=== PATIENT | male | born 1955 | race Caucasian/White ===

== ENCOUNTER 2018-08-14 22:52 | Emergency (ER) | payer OTHER ==
[~2018-08-14] VITALS: Ht 167.6 cm; Wt 130.3 kg
[2018-08-14 23:10] VITALS: Ht 167.6 cm; Wt 130.3 kg
--- NOTE | 2018-08-15 02:52 | ERD ---
ER Documentation Chief Complaint Chief Complaint cough/runny nose x 1 week. also c/o bruising abd area HPI 63-year-old male presents here in emergency department for complaints of right upper quadrant abdominal pain, bruising in the upper abdominal area, unknown how long it has been on, is yellowish discoloration of the upper abdomen, complains of right upper quadrant abdominal pain that is worse with coughing, has been having cough runny nose congestion for 1 week, was seen by the urgent care clinic and was given cough medications, continues to have the cough and now is having pain on the right rib right upper quadrant area with the coughing, patient did not notice the bruising before but nausea which discoloration in epigastric area pain. Complains of pain sharp pain, 6/10, worse upon coughing. ROS All systems reviewed and are negative except as per history of present illness. Medications Home Meds Reported Medications [none] Unknown Strength No Conflict Check 08/15/18 Allergies Allergies: Coded Allergies: No Known Drug Allergies (Verified Allergy, Unknown, 08/14/18) PMhx/Soc Medical and Surgical Hx: pt denies Medical Hx, pt denies Surgical Hx FmHx Family History: No diabetes, No coronary disease, No other Physical Exam Vitals Vital Signs Date Temp Pulse Resp B/P (MAP) Pulse Ox O2 O2 Flow FiO2 Time Delivery Rate 08/14/18 97.6 90 18 164/87 96 23:10 (112) Physical Exam GENERAL: The patient is well developed and appropriate for usual state of health, in no apparent distress. CHEST: Clear to auscultation bilaterally. There are no rales, wheezes or rhonchi. HEART: Regular rate and rhythm. No murmurs, clicks, rubs or gallops. No S3 or S4. ABDOMEN: Soft, nontender and nondistended. Good bowel sounds. No rebound or guarding. No gross peritonitis. No gross organomegaly or masses. No Howard sign or McBurney point tenderness. BACK: No midline or flank tenderness. EXTREMITIES: Equal pulses bilaterally. There is no peripheral clubbing, cyanosis or edema. No focal swelling or erythema. Full range of motion. Grossly neurovascularly intact. NEURO: Alert and oriented. Cranial nerves 2-12 intact. Motor strength in all 4 extremities with 5/5 strength. Sensation grossly intact. Normal speech and gait. SKIN: There is no apparent rash or petechia. The skin is warm and dry. HEMATOLOGIC AND LYMPHATIC: There is no evidence of excessive bruising or lymphedema. No gross cervical, axillary, or inguinal lymphadenopathy. Result Diagram: 08/15/1825608/15/18256 Results 24 hrs Laboratory Tests Test 08/15/18 02:57 White Blood Count 10.5 10^3/ul Red Blood Count 4.67 10^6/ul Hemoglobin 14.2 g/dl Hematocrit 43.3 % Mean Corpuscular Volume 92.7 fl Mean Corpuscular Hemoglobin 30.4 pg Mean Corpuscular Hemoglobin Concent 32.8 g/dl Red Cell Distribution Width 13.4 % Platelet Count 316 10^3/UL Mean Platelet Volume 9.7 fl Immature Granulocytes % 2.000 % Neutrophils % 39.2 % Lymphocytes % 46.4 % Monocytes % 9.5 % Eosinophils % 2.1 % Basophils % 0.8 % Nucleated Red Blood Cells % 0.0 /100WBC Immature Granulocytes # 0.210 10^3/ul Neutrophils # 4.1 10^3/ul Lymphocytes # 4.9 10^3/ul Monocytes # 1.0 10^3/ul Eosinophils # 0.2 10^3/ul Basophils # 0.1 10^3/ul Nucleated Red Blood Cells # 0.0 10^3/ul Prothrombin Time 12.2 Sec Prothrombin Time Ratio 1.0 INR International Normalized Ratio 0.89 Urine Color YELLOW Urine Clarity SLIGHTLY CLOUDY Urine pH 5.0 Urine Specific Purling 1.037 Urine Ketones TRACE mg/dL Urine Nitrite NEGATIVE mg/dL Urine Bilirubin NEGATIVE mg/dL Urine Urobilinogen 1+ mg/dL Urine Leukocyte Esterase NEGATIVE Martínez/ul Urine Microscopic RBC 0 /HPF Urine Microscopic WBC 1 /HPF Urine Mucus FEW /HPF Urine Hemoglobin NEGATIVE mg/dL Urine Glucose 3+ mg/dL Urine Total Protein 1+ mg/dl Sodium Level 142 mmol/L Potassium Level 5.1 mmol/L Chloride Level 107 mmol/L Carbon Dioxide Level 24 mmol/L Anion Gap 11 Blood Urea Nitrogen 20 mg/dl Creatinine 1.24 mg/dl Est Glomerular Filtrat Rate mL/min 59 mL/min Glucose Level 127 mg/dl Calcium Level 9.7 mg/dl Total Bilirubin 0.4 mg/dl Direct Bilirubin 0.00 mg/dl Indirect Bilirubin 0.4 mg/dl Aspartate Amino Transf (AST/SGOT) 65 IU/L Alanine Aminotransferase (ALT/SGPT) 38 IU/L Alkaline Phosphatase 99 IU/L Total Protein 9.1 g/dl Albumin 4.8 g/dl Globulin 4.30 g/dl Albumin/Globulin Ratio 1.11 Lipase 122 U/L Current Medications Medications Dose Sig/Rosalba Start Time Status Last (Trade) Ordered Route PRN Stop Time Admin Dose Reason Admin IV Flush 10 ml STK-MED 08/15/18 DC (NS 10 ml) ONCE .ROUTE 03:47 08/15/18 03:48 Sodium 100 ml @ ud STK-MED 08/15/18 DC Chloride ONCE .ROUTE 03:47 08/15/18 03:48 Iohexol 150 ml STK-MED 08/15/18 DC (Omnipaque ONCE .ROUTE 03:47 300mg/ ml) 08/15/18 03:48 PROCEDURE: CT Abdomen and pelvis with contrast CLINICAL INDICATION: Abdominal pain TECHNIQUE: Spiral CT images through the abdomen and pelvis without administration of oral and during administration of 100 cc of Omnipaque-300 contrast material. Multiplanar reconstructions. The total exam CTDI equals 22.46 mGy and the total exam DLP equals 1568.06 mGy-cm. One or more of the following dose reduction techniques were used: automated exposure control, adjustment of the mA and/or kV according to patient size, or use of iterative reconstruction technique. DICOM images are available. COMPARISON: Current right upper quadrant ultrasound, dictated separately. FINDINGS: Lower thorax: Bibasilar atelectasis/scarring without effusion. Mild cardiomegaly.. Liver: Diminished hepatic density consistent with hepatic steatosis. Subtle 8 mm hypoattenuating lesion anteriorly within the left lobe on image 41, indeterminate. Hepatic span measures 16.4 cm on sagittal image 36. Biliary: Contracted gallbladder without stones seen. No biliary ductal dilatation is seen. Pancreas: Unremarkable. No peripancreatic inflammatory changes Spleen: The spleen is unremarkable in appearance Adrenal glands: Unremarkable in appearance. No focal nodule.. Genitourinary: No hydronephrosis or renal calculi.. Urinary bladder is decompressed. Gastrointestinal Tract: No dilated bowel loops to suggest intestinal obstruction, or localizing inflammatory changes are seen. The appendix is unremarkable in appearance. Lymph nodes: No adenopathy is seen.. Peritoneal cavity: No free air, free or loculated fluid seen.. Reproductive Organs: Small calcifications centrally within normal size prostate gland.. Punctate bilateral scrotalith is seen Vascular structures: Mild atherosclerotic calcifications. No abdominal aortic aneurysm. Soft tissues: Generalized laxity of the ventral wall musculature, with moderate sized fat containing umbilical hernia, without adjacent stranding. Small fat containing left inguinal hernia Musculoskeletal: Multilevel degenerative changes, greatest at L4-5 and L5-S1. No acute or aggressive appearing osseous abnormality. IMPRESSION: No definite acute intra-abdominal or pelvic abnormality including no evidence of intestinal obstruction or appendicitis, free air or abscess. Diffuse hepatic steatosis. A sub-centimeter left hepatic lobe low density lesion is indeterminate, perhaps a small cyst set against the background of hepatic steatosis. If no priors, could be further evaluated by MRI without and with contrast, on a a non emergent basis. RPTAT: [facility]SA[facility] Physician Mervat Date Time Electronically viewed and signed by Preston Montgomery Physician on 08/15/2018 04:32 RF/ CC: DON ESPINOZA RN CVOR [id number] PROCEDURE: XR Chest. CLINICAL INDICATION: Cough. TECHNIQUE: Portable single view of the chest COMPARISON: Imaging of the lung bases from current abdominal CT FINDINGS: Lung volumes appear shallow with bronchovascular crowding and subsegmental atelectasis. No definite superimposed infiltrate. No overt CHF including no pleural effusion. No pneumothorax. There is enlargement of the cardiomediastinal silhouette includes the presence of mild cardiomegaly. Superior mediastinal prominence may be a combination of aortic and vascular ectasia and prominence of mediastinal fat. There is aortic atherosclerotic calcification. Osseous structures appear intact with degenerative changes present. IMPRESSION: Hypoventilatory changes without superimposed acute process seen within the chest . Mild cardiomegaly. Aortic atherosclerotic calcification. Widening of the superior mediastinum which may be a combination of vascular ectasia and prominence of mediastinal fat, for which comparison to prior studies or non emergent follow-up imaging (portable radiographs or CT) could be obtained for confirmation. RPTAT: [facility]SAF Physician Mervat Date Time Electronically viewed and signed by Physician Mervat on 08/15/2018 04:37 RF/ CC: DON ESPINOZA NP [id number] PROCEDURE: US Abdomen limited. CLINICAL INDICATION: Abdominal pain TECHNIQUE: Nobles scale and color Doppler imaging of the right upper quadrant COMPARISON: Current CT, dictated separately FINDINGS: Note some technical limitation in relation to the patient body habitus. The liver is of diffusely increased echogenicity consistent with diffuse hepatic steatosis, which also limits overall evaluation for detection of a focal lesion. Hepatic span was measured at 22.3 cm although appears overestimated when correlating with current CT. There is appropriately directed flow within the main portal vein. Contracted gallbladder which contains low-level echoes, that may be artifactual or small amount of sludge. No stones, wall thickening or pericholecystic free fluid. Unknown sonographic Howard's sign. No evidence of biliary ductal dilatation is seen. The common duct was measured at 5.9 mm in the shadia hepatis. The pancreas is obscured by upper abdominal bowel gas. The right kidney measures 10.1 cm in length without stone or hydronephrosis. No ascites was seen. IMPRESSION: Study slightly limited by bowel gas. No definite acute abnormality. Diffuse hepatic steatosis. RPTAT: HSAF Preston Montgomery Physician Date Time Electronically viewed and signed by Physician Mervat on 08/15/2018 0 4:35 RF/ CC: DON ESPINOZA NP [id number] Procedures/[facility] Medical decision making: Patient symptoms of abdominal pain when coughing most likely is consistent with musculoskeletal pain. No abdominal emergencies noted. No gallbladder stones noted. No symptoms of any aortic dissection. Most likely patient has acute bronchitis, most likely atypical infection. Low suspicion of any CHF, acute coronary syndrome, PE, or any acute abdominal or cardiopulmonary emergencies at this time. Prescription was given for azithromyc in, guaifenesin with codeine, Zyrtec ibuprofen, was asked to follow-up with primary care doctor in 2-3 days for reevaluation of symptoms. Patient was advised to return to emergency department for new or worsening symptoms. Disposition: Home. Stable. Departure Diagnosis: Primary Impression: Acute bronchitis Bronchitis organism: unspecified organism Qualified Codes: J20.9 - Acute bronchitis, unspecified Additional Impression: Chest wall muscle strain Encounter type: initial encounter Qualified Codes: S29.011A - Strain of muscle and tendon of front wall of thorax, initial encounter Condition: Stable Patient Instructions: Bronchitis, Antiobiotic Treatment (Adult), Chest Wall Pain, Costochondritis, Chest Wall Strain DON ESPINOZA NP Aug 15, 2018 02:52
[2018-08-15] MEDS ORDERED: SOD CHLORIDE 0.9% 100 ML ONE (03:47)
[2018-08-15] MEDS ORDERED: IOHEXOL 300MG/ML 150 ML BTL ONE (03:47)
[2018-08-15] MEDS ORDERED: CETI10CA PO (04:49)
[2018-08-15] MEDS ORDERED: GUAI473L22 PO (04:49)
[2018-08-15] MEDS ORDERED: IBUP-1542 PO (04:49)
[2018-08-15] MEDS ORDERED: AZIT250T PO (04:49)
[2018-08-15 05:45] VITALS: BP 170/85; PULSE 80; RESP 18
== END 2018-08-15 05:47 | disposition home or self-care (01) ==
LOC: FTE 22:52
DX: J20.9 Acute bronchitis, unspecified (principal); S29.011A Strain of muscle and tendon of front wall of thorax, initial encounter; R10.9 Unspecified abdominal pain; X58.XXXA Exposure to other specified factors, initial encounter; Y92.9 Unspecified place or not applicable
CPT/HCPCS: 36415; 71045; 74177; 76705; 80053; 81001; 83690; 85025; 85610; Q9967; Z7502; Z7610